=== PATIENT | female | born 1960 | race Caucasian/White ===

== ENCOUNTER 2017-08-31 22:01 | Emergency (ER) | payer OTHER ==
[2017-08-31 22:12] VITALS: BP 142/106; PULSE 134; TEMP 97.8; BMI 21.2
== END 2017-09-01 00:48 | disposition left against medical advice (07) ==
LOC: JER 22:01
DX: Z53.21 Procedure and treatment not carried out due to patient leaving prior to being seen by health care provider (principal)
CPT/HCPCS: 99281-25